=== PATIENT | male | born 1945 | race Caucasian/White ===

== ENCOUNTER 2020-05-17 14:57 | Emergency (ER) | payer OTHER ==
[~2020-05-17] VITALS: Ht 182.9 cm; Wt 93.9 kg
[~2020-05-17 14:57] MED LIST: ALLO100; CIPRO500 MG PO; Flagyl500 MG PO; METO50; OMEP20ER; ROSU10TA; WARF1; WARF2
== END 2020-05-17 17:29 | disposition home or self-care (01) ==
LOC: ER 14:57
DX: T63.441A Toxic effect of venom of bees, accidental (unintentional), initial encounter (principal); Z88.8 Allergy status to other drugs, medicaments and biological substances; Z79.899 Other long term (current) drug therapy; Z79.01 Long term (current) use of anticoagulants; Z79.2 Long term (current) use of antibiotics; J44.9 Chronic obstructive pulmonary disease, unspecified; M10.9 Gout, unspecified; E78.5 Hyperlipidemia, unspecified; K21.9 Gastro-esophageal reflux disease without esophagitis; I25.2 Old myocardial infarction; I11.0 Hypertensive heart disease with heart failure; I50.9 Heart failure, unspecified; Z87.891 Personal history of nicotine dependence
CPT/HCPCS: 93005; 93010; 96374; 96375; 99284-25; J1200; J1885; J2930; J7030

== ENCOUNTER 2022-07-15 17:30 | Emergency (ER) | payer OTHER ==
[~2022-07-15] VITALS: Ht 185.4 cm; Wt 97.1 kg
== END 2022-07-15 19:03 | disposition home or self-care (01) ==
LOC: ER 17:30
DX: T63.441A Toxic effect of venom of bees, accidental (unintentional), initial encounter (principal); R07.0 Pain in throat; J44.9 Chronic obstructive pulmonary disease, unspecified; E78.5 Hyperlipidemia, unspecified; K21.9 Gastro-esophageal reflux disease without esophagitis; I11.0 Hypertensive heart disease with heart failure; I50.9 Heart failure, unspecified; I25.2 Old myocardial infarction; Z88.8 Allergy status to other drugs, medicaments and biological substances; Z91.030 Bee allergy status; Z95.0 Presence of cardiac pacemaker; Z79.01 Long term (current) use of anticoagulants; Z79.899 Other long term (current) drug therapy; Z87.891 Personal history of nicotine dependence
CPT/HCPCS: 99282; J7512

== ENCOUNTER 2023-10-07 13:11 | Day surgery (SDC) | payer OTHER ==
[2023-10-07] VITALS (9 sets, daily range): BP systolic 115–140; BP diastolic 66–92
[~2023-10-07] VITALS: Ht 185.4 cm; Wt 96.4 kg
[~2023-10-07 13:11] MED LIST changes: +ALLO100 PO; +AMIODARONE HCL200 M1 PO; +ELIQUIS5 M2 PO; +Isosorbide Mono30 MG PO; +LOSA25 PO; -METO50; +METO50 PO
--- NOTE | 2023-10-07 15:31 | NUR ---
PT AWAKE AND TALKING AFTER CARDIOVERSION WITH ANESTHESIA. EKG BEING DONE.
--- NOTE | 2023-10-07 15:53 | NUR ---
PT BACK TO BASELINE, DR MONROY IN TO SEE PT. IV D/C CATHETER INTACT. PT VERBALIZE D/C INSTRUCTIONS. DR MONROY OFFICE WILL CALL PT FOR FOLLOW UP APPOINTMENT.
== END 2023-10-09 22:51 | disposition home or self-care (01) ==
LOC: MHTC 13:11
DX: I25.10 Atherosclerotic heart disease of native coronary artery without angina pectoris (principal); R06.02 Shortness of breath; R53.83 Other fatigue; I47.20 Ventricular tachycardia, unspecified; Z45.02 Encounter for adjustment and management of automatic implantable cardiac defibrillator; Z86.79 Personal history of other diseases of the circulatory system; I48.0 Paroxysmal atrial fibrillation; Z95.2 Presence of prosthetic heart valve; Z95.810 Presence of automatic (implantable) cardiac defibrillator; E78.2 Mixed hyperlipidemia; I50.20 Unspecified systolic (congestive) heart failure; I11.0 Hypertensive heart disease with heart failure; Z88.8 Allergy status to other drugs, medicaments and biological substances
CPT/HCPCS: 92960; J2704; J7030

== ENCOUNTER 2023-12-11 05:37 | Emergency (ER) | payer OTHER ==
[~2023-12-11] VITALS: Ht 182.9 cm; Wt 94.3 kg
[2023-12-11 06:28] LABS: BASOPHILS ABSOLUTE AUTO 0.06 K/mm3 (0.00-0.23); BASOPHILS PERCENT AUTO 1 % (0-2); EOSINOPHILS ABSOLUTE AUTO 0.26 K/mm3 (0.00-0.68); EOSINOPHILS PERCENT AUTO 3 % (0-6); Hematocrit 48.7 % (37.0-53.0); Hemoglobin 15.7 g/dL (13.5-17.5); IMMATURE GRAN ABSOLUTE AUTO 0.03 K/mm3 (0.00-0.10); IMMATURE GRAN PERCENT AUTO 0 % (0-1); LYMPHOCYTES ABSOLUTE AUTO 2.04 K/mm3 (0.84-5.20); LYMPHOCYTES PERCENT AUTO 22 % (21-46); MONOCYTES ABSOLUTE AUTO 0.77 K/mm3 (0.16-1.47); MONOCYTES PERCENT AUTO 8 % (4-13); Mean Corpuscular HGB Conc 32.2 g/dL (31.5-36.5); Mean Corpuscular Volume 90 fL (80-100); Mean Platelet Volume 10.2 fL (9.1-12.4); NEUTROPHILS PERCENT AUTO 66 % (41-73); Platelet Count 182 K/mm3 (150-400); RDW Coefficient Variation 18.2 % (11.7-14.2); Red Blood Cell Count 5.42 M/mm3 (4.30-5.90); White Blood Cell Count 9.16 K/mm3 (4.00-11.30)
[2023-12-11 06:55] LABS: Albumin, Blood 3.2 g/dL (3.4-5.0); Albumin/Globulin Ratio 0.8 (0.8-1.8); Bilirubin, Total 0.6 mg/dL (0.1-1.0); Bun/Creatinine Ratio 20.7 (12.0-20.0); Calcium, Blood 9.1 mg/dL (8.5-10.1); Creatinine, Blood 1.21 mg/dL (0.60-1.20); Globulin, Blood 4.1 g/dL (2.2-4.0); Magnesium, Blood 2.2 mg/dL (1.6-2.4); Potassium, Blood 4.7 mmol/L (3.5-5.5); Total Protein, Blood 7.3 g/dL (6.4-8.2)
[2023-12-11 10:15] VITALS: BP 146/92
== END 2023-12-11 10:28 | disposition home or self-care (01) ==
LOC: ER 05:37
PROVIDERS: Student in an Organized Health Care Education/Training Program
DX: R06.02 Shortness of breath (principal); R00.2 Palpitations; R94.31 Abnormal electrocardiogram [ECG] [EKG]; Z95.810 Presence of automatic (implantable) cardiac defibrillator; I13.0 Hypertensive heart and chronic kidney disease with heart failure and stage 1 through stage 4 chronic kidney disease, or unspecified chronic kidney disease; I50.9 Heart failure, unspecified; N18.9 Chronic kidney disease, unspecified; Z87.891 Personal history of nicotine dependence; J44.9 Chronic obstructive pulmonary disease, unspecified; M10.9 Gout, unspecified; I25.2 Old myocardial infarction; I48.91 Unspecified atrial fibrillation; Z86.79 Personal history of other diseases of the circulatory system; Z79.01 Long term (current) use of anticoagulants; Z79.899 Other long term (current) drug therapy; Z88.8 Allergy status to other drugs, medicaments and biological substances; Z91.030 Bee allergy status
CPT/HCPCS: 71046; 80053; 83690; 83735; 83880; 84484; 85025; 93005; 93010; J3475

== ENCOUNTER 2024-05-02 09:30 | Inpatient (IN) | payer OTHER, MEDICARE ==
[~2024-05-02] VITALS: Ht 188 cm; Wt 85.2 kg
[~2024-05-02 09:30] MED LIST changes: +FISH OIL 1,0001 EA10 PO; +FURO20 PO; +NITRO-DUR1 EAC1 TOP; -OMEP20ER; +OMEP20ER PO; -ROSU10TA; +ROSUVASTATIN CA10 MG PO
[2024-05-02 10:02] LABS: BASOPHILS ABSOLUTE AUTO 0.07 K/mm3 (0.00-0.23); BASOPHILS PERCENT AUTO 1 % (0-2); EOSINOPHILS ABSOLUTE AUTO 0.15 K/mm3 (0.00-0.68); EOSINOPHILS PERCENT AUTO 2 % (0-6); Hematocrit 44.8 % (37.0-53.0); Hemoglobin 14.7 g/dL (13.5-17.5); IMMATURE GRAN ABSOLUTE AUTO 0.02 K/mm3 (0.00-0.10); IMMATURE GRAN PERCENT AUTO 0 % (0-1); LYMPHOCYTES ABSOLUTE AUTO 2.16 K/mm3 (0.84-5.20); LYMPHOCYTES PERCENT AUTO 22 % (21-46); MONOCYTES ABSOLUTE AUTO 1.05 K/mm3 (0.16-1.47); MONOCYTES PERCENT AUTO 11 % (4-13); Mean Corpuscular HGB 28.9 pg (26.0-34.0); Mean Corpuscular HGB Conc 32.8 g/dL (31.5-36.5); Mean Corpuscular Volume 88 fL (80-100); Mean Platelet Volume 10.9 fL (9.1-12.4); NEUTROPHILS ABSOLUTE AUTO 6.28 K/mm3 (1.96-9.15); NEUTROPHILS PERCENT AUTO 65 % (41-73); NRBC ABSOLUTE 0.03 K/mm3 (0.00-0.02); NRBC Auto 0.3 /100 WBC (0.0-0.2); Platelet Count 234 K/mm3 (150-400); RDW Standard Deviation 57.4 fL (35.1-46.3); Red Blood Cell Count 5.09 M/mm3 (4.30-5.90); White Blood Cell Count 9.73 K/mm3 (4.00-11.30)
[2024-05-02 10:21] LABS: Albumin, Blood 3.2 g/dL (3.4-5.0); Albumin/Globulin Ratio 0.8 (0.8-1.8); Bilirubin, Total 1.3 mg/dL (0.1-1.0); Creatinine, Blood 2.32 mg/dL (0.60-1.20); Total Protein, Blood 7.2 g/dL (6.4-8.2)
[2024-05-02 10:52] LABS: Magnesium, Blood 3.2 mg/dL (1.6-2.4)
[2024-05-02] MEDS ORDERED: NS 1,000 ML IV SCH (10:55)
[2024-05-02 11:00] LABS: Thyroid Stimulating Hormone 1.28 uIU/mL (0.360-4.800)
[2024-05-02 12:07] LABS: Influenza A, PCR NEGATIVE (NEGATIVE); Influenza B, PCR NEGATIVE (NEGATIVE); Resp Syncytial Virus, PCR NEGATIVE (NEGATIVE); SARS-Cov-2 (COVID-19) PCR, MMC NEGATIVE (NEGATIVE)
[2024-05-02] MEDS ORDERED: Furosemide 10 MG/ML 4ML Vial IV ONE (12:20)
[2024-05-02 12:21] LABS: Source, Urine Clean Catch
[2024-05-02] MEDS ORDERED: Midodrine 5 MG Tab PO ONE (12:25)
[2024-05-02 12:30] LABS: Appearance, Urine Clear (Clear); Bilirubin, Urine Neg (Neg); Blood, Urine Neg (Neg); Color, Urine Amber (P-Yellow); Glucose Qualitative, Urine Neg (Neg); Ketones, Urine Neg (Neg); Leukocyte Esterase, Urine 1+ (Neg); Nitrite, Urine Neg (Neg); Protein, Urine 2+ (Neg); Specific Gravity, Urine 1.015 (1.003-1.022); Urobilinogen, Urine NORM (Normal)
[2024-05-02 12:48] LABS: Amorphous Light (0-Heavy); Bacteria Few /hpf; Red Blood Cells, Urine 0-2 /hpf (0-2); Squamous Epithelial Cells Rare /hpf (Few)
[2024-05-02] MEDS ORDERED: Acetaminophen 325 MG TABLET PO PRN (12:50)
[2024-05-02] MEDS ORDERED: Ondansetron HCl 2 MG / ML 2ML Vial IV PRN (12:50)
[2024-05-02] MEDS ORDERED: Midodrine 5 MG Tab PO SCH (13:00)
[2024-05-02 13:10] LABS: Base Excess Venous 1.8 mmol/L; Bicarbonate Venous 24.1 mmol/L (24.0-30.0); PCO2 Venous 51.4 mmHg (38-42); pH Blood Venous 7.34 (7.34-7.37)
[2024-05-02 15:32] VITALS: BP 97/78
[2024-05-02] MEDS ORDERED: FOLI1 PO (15:54)
--- NOTE | 2024-05-02 17:18 | NUR ---
ARRIVAL TO PCU: PT ARRIVED TO PCU-1 VIA GURNEY AT 1535. REPORT FROM RAQUEL RN, THIS RN ASSUMED CARE. ABLE TO STAND & TRANSFER TO BED W/ 1P ASSIST. PT A/OX4, ABLE TO COMMUNICATE NEEDS W/ STAFF. HR 70'S, PACED ON TELE. SBP 90'S, MAP >65. PT DENIES DIZZINESS W/ STANDING. SPO2 >88% ON RA, RESPIRATIONS EVEN & UNLABORED, AFEBRILE. GI/ WNL. SKIN GROSSLY INTACT; PALLOR NOTED T/O, CYANOSIS TO FINGERTIPS. PT ORIENTED TO ROOM/UNIT/CALL LIGHT. FIRE SAFETY/IGNITION RISK ASSESSED; PT IS NON-SMOKER AND DENIES HAVING ANY IGNITION SOURCES PRESENT ON ADMISSION. FAMILY MEMBER AT BEDSIDE. NO OTHER NEEDS AT THIS TIME. SITTING UP IN BED EATING DINNER. CALL LIGHT IN REACH.
[2024-05-02] MEDS ORDERED: Furosemide 10 MG/ML 4ML Vial IV SCH (18:00)
[2024-05-02 18:25] VITALS: BP 102/81
[2024-05-02 19:46] VITALS: BP 95/68
[2024-05-02 23:13] VITALS: BP 107/77
[2024-05-02] MEDS ORDERED: Melatonin 5 MG Tablet PO PRN (23:30)
[2024-05-03] VITALS (9 sets, daily range): BP systolic 94–117; BP diastolic 62–86
[2024-05-03 05:06] LABS: Creatinine, Blood 2.12 mg/dL (0.60-1.20); Potassium, Blood 4.9 mmol/L (3.5-5.5)
[2024-05-03] MEDS ORDERED: Omeprazole 20 MG CapCR PO SCH (06:00)
--- NOTE | 2024-05-03 06:31 | NUR ---
SHIFT SUMMARY PATIENT ALERT AND ORIENETED x4 T/O THE NIGHT. LABORED BREATHING AND TACHYPNEA NOTED AT BEGINNING OF SHIFT, TOLERATING 2L O2 VIA NC WELL. DYSPNEA ON EXERTION TO RESTROOM, AMBULATES WITH WALKER AND 1P ASSIST. URINAL AT BEDSIDE, RN ADVICED PATIENT TO USE URINAL TO AVOID OVEREXERTION. PATIENT'S SKIN T/O IS PALE TO CYANOTIC, ESPECIALLY CYANOTIC IN THE FINGER TIPS WITH CLUBBING. SKIN WARM. PATIENT APPEARS TO BE RESTING COMFORTABLY WITH EVEN CHEST RISE AND FALL. SLEEP MEDS ORDERED OVERNIGHT FOR PT'S INSOMNIA.
[2024-05-03] MEDS ORDERED: Allopurinol 100 MG Tab PO SCH (09:00)
[2024-05-03] MEDS ORDERED: Furosemide 10 MG/ML 4ML Vial IV SCH (09:00)
[2024-05-03] MEDS ORDERED: Folic Acid 1 MG TAB PO SCH (09:00)
[2024-05-03] MEDS ORDERED: Metoprolol Tartrate 50 MG Tab PO SCH (09:00)
[2024-05-03] MEDS ORDERED: Amiodarone HCl 200 MG Tab PO SCH (09:00)
[2024-05-03] MEDS ORDERED: Nitroglycerin Patch 0.4 MG / HR TOP SCH (09:00)
[2024-05-03] MEDS ORDERED: Docosahexanoic Acid/EPA 1,000 MG CAP PO SCH (09:00)
[2024-05-03] MEDS ORDERED: Metoprolol Succinate 50 MG TABCR PO SCH (09:00)
[2024-05-03] MEDS ORDERED: Apixaban 5 MG Tab PO SCH (09:00)
--- NOTE | 2024-05-03 12:48 | NUR ---
REASSESSMENT PT HAS CONTINUED TO HAVE A NORMAL BP, EVEN WITH RECEIVING HIS HEART MEDICATIONS THIS MORNING. SPOKE WITH DR. COLE AFTER HE CHANGED PT'S METOPOROLOL SINCE AM DOSE HAD BEEN GIVEN AND HE GAVE ORDERS TO KEEP EVENING DOSE THE SAME, THEN SWITCH TO LONG ACTING IN THE MORNING. PT HAS HAD LITTLE OUTPUT SINCE RECEIVING LASIX THIS AM. HIS LUNGS ARE CLEAR, BUT VERY DIM. HE GETS WINDED WITH MINIMAL ACTIVITY AND PT STATES THAT HE FEELS VERY WEAK. HE GOT UP TO THE BATHROOM TWICE AND WAS ABLE TO HAVE A BM. MINIMAL APPETITE. SO VISITED AND WAS UPDATED BY NURSING STAFF.
--- NOTE | 2024-05-03 17:10 | NUR ---
SHIFT SUMMARY PT HAS MAINTAINED MAP ABOVE 65 THROUGHOUT THE SHIFT. HIS URINE OUTPUT HAS BEEN LOW THOUGH SO DR. COLE NOTIFIED AND HE SWITCHED PT TO BUMEX. OXYGEN HAD TO BE INCREASED TO 3L/NC THIS AFTERNOON WHILE PT WAS RESTING BECAUSE SPO2 WAS 88%. PT HAS CONTINUED TO BE DYSPNEIC WITH ACTIVITY AND COMPLAIN OF AN OVERALL FEELING OF WEAKNESS. HE HAD SOME PAIN IN HIS ARMS THIS AFTERNOON THAT RESOLVED WITH TYLENOL. POOR APPETITE, ONLY EATING ABOUT 25% OF MEALS.
[2024-05-03] MEDS ORDERED: Metolazone 5 MG Tab PO SCH (18:00)
[2024-05-03] MEDS ORDERED: Bumetanide 0.25 MG/ML 4ML ViaL IV SCH (18:00)
--- NOTE | 2024-05-03 20:38 | NUR ---
CARE ASSUMPTION ASSUMED CARE OF PATIENT AT 1900. PATIENT ALERT AND ORIENTED x4, VISITING WITH FAMILY AT BEDSIDE. MAINTAINING SPO2 >90% ON 2L O2 VIA NC. DENIES PAIN/DISCOMFORT. PM METOPROLOL 100MG HELD BY RN DUE TO PATIENT'S SBP < 100. PATIENT BP TENDS TO RUN LOW DURING THE NIGHT. CURRENT HR 78, PACED.
[2024-05-03] MEDS ORDERED: Rosuvastatin Calcium 10 MG Tab PO SCH (21:00)
[2024-05-03] MEDS ORDERED: Metoprolol Tartrate 50 MG Tab PO ONE (21:00)
[2024-05-04 03:11] VITALS: BP 100/75
[2024-05-04 04:47] LABS: Bun/Creatinine Ratio 24.2 (12.0-20.0); Creatinine, Blood 2.27 mg/dL (0.60-1.20)
[2024-05-04 07:44] VITALS: BP 106/77
[2024-05-04] MEDS ORDERED: Metoprolol Succinate 25 MG TABCR PO SCH (09:00)
[2024-05-04 11:26] VITALS: BP 92/67
[2024-05-04 15:29] VITALS: BP 96/65
--- NOTE | 2024-05-04 18:07 | NUR ---
SHIFT SUMMARY PT REMAINS A&OX4, CALLS APPROPRAITELY, AND WILL MAKE HIS NEEDS KNOWN. HE IS A 1P SBA W/ FWW WHEN TRANSFERING. HE WORKED WITH PT AND THEY RECCOMENED HOME HEALTH. THE PT HAS BEEN V PACED ON TELE, BP SOFT BUT STABLE WITH MIDODRINE. HE HAS BEEN TITRATITED TO 3LNC TO MAINTAIN SP02 >90% AND TO HELP WITH SOB. THE PT HAD AN UNEVENTFUL DAY THIS SHIFT. FAMILY UPDATED ON CARE WHEN AT BEDSIDE. SEE NOTES FOR ANY UPDATES.
[2024-05-04 19:40] VITALS: BP 105/84
[2024-05-05] VITALS (10 sets, daily range): BP systolic 88–111; BP diastolic 56–84
[2024-05-05 04:22] LABS: Bun/Creatinine Ratio 23.7 (12.0-20.0); Calcium, Blood 9.3 mg/dL (8.5-10.1); Creatinine, Blood 2.45 mg/dL (0.60-1.20); Potassium, Blood 3.8 mmol/L (3.5-5.5)
--- NOTE | 2024-05-05 05:14 | NUR ---
SHIFT SUMMARY ASSUMED CARE OF PT AT 1900. PT IS A/OX4. HEART SOUNDS REGULAR. PACED. LUNG SOUNDS HAVE CRACKELS AT THE BASES. PT TITRATED TO 2L NC. DENIES SOB. PT USED URINAL INDEPENDENTLY T/O THE NOC. NO ACTUE EVENTS.
[2024-05-05] MEDS ORDERED: Bumetanide 0.25 MG/ML 10ML Vial IV ONE (08:45)
[2024-05-05] MEDS ORDERED: Midodrine 5 MG Tab PO SCH (09:00)
--- NOTE | 2024-05-05 16:48 | NUR ---
SHIFT SUMMARY PT IS A&oX4, CALLS APPROPRAITELY, AND MAKES HIS NEEDS KNOWN. HE IS A 1P SBA FOR TRANSFER, AND HAS BEEN UP IN THE CHAIR MOST OF THE SHIFT. HE USES THE URINAL IND, AND IS ON A FLUID RESTRICTION OF 1L. ON TELE THE PT HAS BEEN VPACED 80'S, AND BP HAS BEEN SOFT. DR. COLE INCREASED FREQUENCY OF MIDODRINE TO 10MG QID. DR. CHEN WAS CONSULTED AND IS MANAGING DIURETICS. CAME IN TO EVALUATE THE PT THIS MORNING. NO ACUTE EVENTS THIS SHIFT. SEE NOTES FOR UPDATES.
[2024-05-06] VITALS (11 sets, daily range): BP systolic 87–115; BP diastolic 59–78
[2024-05-06 04:24] LABS: Hematocrit 42.5 % (37.0-53.0); Hemoglobin 14.5 g/dL (13.5-17.5)
[2024-05-06 04:55] LABS: Albumin, Blood 3.1 g/dL (3.4-5.0); Anion Gap 10 mmol/L (3-11); Blood Urea Nitrogen 63 mg/dL (8-24); Bun/Creatinine Ratio 26.7 (12.0-20.0); CO2, Blood 30 mmol/L (21-32); Calcium, Blood 9.3 mg/dL (8.5-10.1); Chloride, Blood 96 mmol/L (98-108); Creatinine, Blood 2.36 mg/dL (0.60-1.20); Glomerular Filtration Rate 27 (60-); Glucose, Blood 91 mg/dL (70-99); Magnesium, Blood 2.3 mg/dL (1.6-2.4); Phosphorus, Blood 4.8 mg/dL (2.5-4.9); Potassium, Blood 3.4 mmol/L (3.5-5.5); Sodium, Blood 133 mmol/L (136-145)
--- NOTE | 2024-05-06 05:05 | NUR ---
SHIFT SUMMARY ASSUMED CARE OF PT AT 1900. PT IS A/OX4. HEART SOUNDS REGULAR. LUNG SOUNDS HAVE CRACKLES AT THE BASES. PT REMAINED ON 2L NC T/O THE NOC DUE TO DYSPNEA. PT USED URINAL AT BEDSIDE IND. PT COMPLAINED OF NOT BEING ABLE TO SLEEP THIS NOC.
[2024-05-06] MEDS ORDERED: Potassium Chloride 20 MEQ TabCR PO ONE (05:55)
[2024-05-06] MEDS ORDERED: Bumetanide 1 MG Tab PO SCH (09:00)
[2024-05-06] MEDS ORDERED: Midodrine 5 MG Tab PO SCH (09:00)
[2024-05-06] MEDS ORDERED: Empagliflozin 10 MG TAB PO SCH (09:00)
--- NOTE | 2024-05-06 09:59 | NUR ---
CALLED DR. COLE THIS MORNING ABOUT PT'S HYPOTENSION. HE RESTARTED MIDODRINE 1OMG TID, WANTS ME TO HOLD THEE METOPROLOL AT THIS TIME, AND HE CONSULTED CARDIOLOGY. DR. MONROY CAME AND SAW THE PT. HE STATED IF THE PT'S BP MAP <60 THEN THE PT NEEDS TO GO TO ICU. DR. MONROY IS ORDERING A STRESS TEST.
--- NOTE | 2024-05-06 11:54 | NUR ---
OXYGEN TITRATION TRIAL THE PT HAS BEEN ON 2L NC W/ SP02>93%. I TITRAITED HIM TO 1LNC FOR ABOUT THIRTY MINUTES, UNTIL HE REPORTED FEELING SLIGHTLY SHORT OF BREATH AND HE STATED HE NOTICED THE DIFFERENCE. HIS SP02 WAS 88-90%. THE PT WAS PUT BACK ON 2LNC AND SOB HAS RESOLVED; SP02 >93%.
[2024-05-06] MEDS ORDERED: Regadenoson 0.4 MG/5 ML SYRINGE ONE (13:31)
--- NOTE | 2024-05-06 17:25 | NUR ---
SHIFT SUMMARY PT IS A&OX4, CALLS APPROPRIATELY, AND MAKES THEIR NEEDS KNOWN. HE IS A 1P SBA D/T LINE MANAGMENT AND DECONDITIONING. HE HAS BEEN PACED ON TELE AND HAD A STRESS TEST TODAY. I LET DR. MONROY KNOW ABOUT TO TEST RESULTS AND DR. MONROY STATED NO ANGIOGRAM AT THIS TIME. BP HAS BEEN SOFT BUT STABLE, MIDODRINE 1OMG TID FOR SBP <100 ON THE PT'S JAN. HE HAS BEEN ON 2L NC W/ SP02 >90%. I TRIED TITRATING HIM DOWN EARLIER TODAY, SEE PREVIOUS NOTE. NO ACUTE EVENTS THIS SHIFT. SEE NOTES FOR ANY UPDATES.
--- NOTE | 2024-05-06 17:35 | NUR ---
DR. MONROY SAW THE PT AND TALKED TO HIM ABOUT HIS STRESS TEST. THE PT IS GOING TO F/U OUTPT WITH CARDIOLOGY AT [facility] OR [facility] FOR MORE TESTING.
[2024-05-07 00:06] VITALS: BP 95/63
[2024-05-07 03:29] LABS: Hematocrit 41.2 % (37.0-53.0); Hemoglobin 13.7 g/dL (13.5-17.5)
[2024-05-07 03:32] VITALS: BP 103/74
[2024-05-07 03:50] LABS: Anion Gap 12 mmol/L (3-11); Blood Urea Nitrogen 63 mg/dL (8-24); Bun/Creatinine Ratio 27.3 (12.0-20.0); CO2, Blood 31 mmol/L (21-32); Calcium, Blood 9.1 mg/dL (8.5-10.1); Chloride, Blood 95 mmol/L (98-108); Creatinine, Blood 2.31 mg/dL (0.60-1.20); Glomerular Filtration Rate 28 (60-); Glucose, Blood 111 mg/dL (70-99); Magnesium, Blood 2.2 mg/dL (1.6-2.4); Phosphorus, Blood 4.2 mg/dL (2.5-4.9); Potassium, Blood 3.1 mmol/L (3.5-5.5); Sodium, Blood 135 mmol/L (136-145)
--- NOTE | 2024-05-07 05:46 | NUR ---
SHIFT SUMMARY A/Ox4 AND COOPERATIVE WITH CARE. ANSWERS QUESTIONS APPROPRIATELY AND ABLE TO MAKE HIS NEEDS KNOWN. NO ACUTE EVENTS OVERNIGHT. CARDIAC, REMAINS IN PACED RHYTHM RANGING 80'S WITH NO REPORTS OF CP, PRESSURE OR DIZZINESS. SBP HAS BEEN SOFT, BUT STABLE RANGING 90-100'S WITH MAP ALWAYS >65. RESPIRATORY, MAINTAINS SPO2 >90% ON 2L NC. ATTEMPTED TO TITRATE PT DOWN TO 1L, BUT PT WAS NOT ABLE TO TOLERATE 1L WHEN ATTEMPTING TO SLEEP. GI/, ABLE TO STAND AT BEDSIDE AND VOID INTO URINAL WITHOUT ASSISTANCE. PAIN MANAGED WITH PRN TYLENOL. NO NEW ORDERS AT THIS TIME, WILL REPORT TO ONCOMING RN. ERENDIRA ANGELES OF THIS NOTE.
[2024-05-07] MEDS ORDERED: Potassium Chloride 20 MEQ TabCR PO ONE (06:25)
[2024-05-07 08:24] VITALS: BP 90/64
--- NOTE | 2024-05-07 08:30 | NUR ---
INITIAL ASSESSMENT: Patient is awake sitting up in bed after eating breakfast. He is alert and oriented x4. LS DIM in the bases, biox is mid to low 90s on 2l via NC, pt is eager to have oxygen at home, Dr. Almeida discussed the process of home O2 eval and insurance quialification. HRR, he is 100% paced with a rate in the 80s. BT+, pt states he is not as regular as he was before but states he had a BM yesterday. He states he is having a little bit of discomfort with urination, he said it cooper slightly. PPP. Dr. Almeida is at the bedside discussing a possible discharge plan after home O2 eval. AM meds given at this time. Call light in reach.
[2024-05-07] MEDS ORDERED: Potassium Chloride 10 Meq Tablet SA PO SCH ×2 (09:00)
[2024-05-07] MEDS ORDERED: BUME2 PO (11:39)
[2024-05-07 11:40] VITALS: BP 106/78
[2024-05-07] MEDS ORDERED: METO25ER PO (11:40)
[2024-05-07] MEDS ORDERED: JARDIANCE10 MG PO (11:40)
[2024-05-07] MEDS ORDERED: POTCHL20ER PO (11:45)
[2024-05-07] MEDS ORDERED: MIDODRINE HCL10 M2 PO (11:45)
[2024-05-07] MEDS ORDERED: ROSUVASTATIN CA10 MG PO (12:17)
[2024-05-07 13:08] VITALS: BP 106/73
--- NOTE | 2024-05-07 14:24 | NUR ---
DISCHARGE: Patient and verbalize understanding of discharge instructions. [facility] delivered portable oxygen. [facility]. Patient discharged to home with and son via WC.
== END 2024-05-07 14:26 | disposition home or self-care (01) | DRG 291 ==
LOC: ER 09:30 → PCU 12:48
PROVIDERS: Internal Medicine Nephrology; Student in an Organized Health Care Education/Training Program; ADMIT Internal Medicine
DX: I13.0 Hypertensive heart and chronic kidney disease with heart failure and stage 1 through stage 4 chronic kidney disease, or unspecified chronic kidney disease (principal); I50.43 Acute on chronic combined systolic (congestive) and diastolic (congestive) heart failure; J96.01 Acute respiratory failure with hypoxia; N17.9 Acute kidney failure, unspecified; E87.1 Hypo-osmolality and hyponatremia; E87.4 Mixed disorder of acid-base balance; N18.30 Chronic kidney disease, stage 3 unspecified; Z66 Do not resuscitate; I95.9 Hypotension, unspecified; I25.5 Ischemic cardiomyopathy; I25.119 Atherosclerotic heart disease of native coronary artery with unspecified angina pectoris; E87.6 Hypokalemia; I48.0 Paroxysmal atrial fibrillation; J44.9 Chronic obstructive pulmonary disease, unspecified; M10.9 Gout, unspecified; E78.5 Hyperlipidemia, unspecified; D64.9 Anemia, unspecified; K21.9 Gastro-esophageal reflux disease without esophagitis; Z87.891 Personal history of nicotine dependence; Z88.8 Allergy status to other drugs, medicaments and biological substances; Z95.5 Presence of coronary angioplasty implant and graft; Z95.810 Presence of automatic (implantable) cardiac defibrillator; Z79.01 Long term (current) use of anticoagulants; Z79.899 Other long term (current) drug therapy; Z91.038 Other insect allergy status; Z98.890 Other specified postprocedural states
CPT/HCPCS: 0241U; 36415; 71045; 76770; 78452; 80048; 80053; 80069; 81001; 82570; 82803; 83690; 83735; 83880; 84300; 84443; 84484; 85014; 85018; 85025; 87086; 93005; 93010; 93017; 93308; 93321; 94762; 96361; 96374; 97110; 97116; 97162; 97530; 99285-25; A9270; A9500; J1940; J2405; J2785; J7030

== ENCOUNTER → 2024-05-14 | Outpatient (CLI) | payer OTHER, MEDICARE ==
[~2024-05-14] MED LIST changes: +BUME2 PO; +FOLI1 PO; +JARDIANCE10 MG PO; +METO25ER PO; +MIDODRINE HCL10 M2 PO; +POTCHL20ER PO
[2024-05-14 13:54] LABS: Protein, Urine Quantitative 36.9 mg/dL (0.0-11.9)
== END | disposition home or self-care (01) ==
LOC: LAB SHORT 02:00 → LAB FUT 05-10 10:40 → EDSTATUS 05-10 10:40
PROVIDERS: Internal Medicine Nephrology
DX: N18.30 Chronic kidney disease, stage 3 unspecified (principal); D63.1 Anemia in chronic kidney disease; N25.81 Secondary hyperparathyroidism of renal origin; E55.9 Vitamin D deficiency, unspecified; E78.00 Pure hypercholesterolemia, unspecified; R76.9 Abnormal immunological finding in serum, unspecified; R94.5 Abnormal results of liver function studies; R94.6 Abnormal results of thyroid function studies; D51.8 Other vitamin B12 deficiency anemias; D52.8 Other folate deficiency anemias; D50.9 Iron deficiency anemia, unspecified
CPT/HCPCS: 81050; 82043; 82570; 84156

== ENCOUNTER 2025-06-27 10:37 | Observation (INO) | payer OTHER ==
[2025-06-27] VITALS (19 sets, daily range): BP systolic 102–140; BP diastolic 56–71
[~2025-06-27] VITALS: Ht 185.4 cm; Wt 81.0 kg
[2025-06-27] MEDS ORDERED: EpiNEPhrine 1 MG/1 ML 1ML Vial IM ONE (10:45)
[2025-06-27] MEDS ORDERED: NS 1,000 ML IV SCH ×2 (10:45→14:00)
[2025-06-27] MEDS ORDERED: EPINEPHrine HCL 4 MG in NS 250 ML IV SCH (10:50)
[2025-06-27 10:52] LABS: pH Blood Venous 7.31 (7.34-7.37)
[2025-06-27] MEDS ORDERED: FentaNYL Citrate 50 MCG/ML 2 ML Injection IV ONE ×2 (11:00→11:45)
[2025-06-27 11:18] LABS: Hematocrit 49.1 % (37.0-53.0); Hemoglobin 15.9 g/dL (13.5-17.5); Mean Corpuscular HGB Conc 32.4 g/dL (31.5-36.5); Mean Corpuscular Volume 97 fL (80-100); NRBC ABSOLUTE 0.00 K/mm3 (0.00-0.02); NRBC Auto 0.0 /100 WBC (0.0-0.2); Platelet Count 213 K/mm3 (150-400); RDW Coefficient Variation 16.1 % (11.7-14.2); RDW Standard Deviation 58.4 fL (35.1-46.3)
[2025-06-27 11:28] LABS: Alanine Aminotransfer (ALT/SGP 40.0 U/L (12-78); Albumin, Blood 3.2 g/dL (3.4-5.0); Albumin/Globulin Ratio 0.8 (0.8-1.8); Anion Gap 13.0 mmol/L (3-11); Aspartate Aminotrans (AST/SGOT 41.0 U/L (12-37); Bilirubin, Total 0.4 mg/dL (0.1-1.0); Blood Urea Nitrogen 35.0 mg/dL (8-24); CO2, Blood 20.0 mmol/L (21-32); Calcium, Blood 9.2 mg/dL (8.5-10.1); Chloride, Blood 110.0 mmol/L (98-108); Creatinine, Blood 1.7 mg/dL (0.60-1.20); Globulin, Blood 4.1 g/dL (2.2-4.0); Glucose, Blood 157.0 mg/dL (70-99); Magnesium, Blood 2.5 mg/dL (1.6-2.4); Potassium, Blood 3.7 mmol/L (3.5-5.5); Sodium, Blood 139.0 mmol/L (136-145); Total Protein, Blood 7.3 g/dL (6.4-8.2)
[2025-06-27] MEDS ORDERED: Lidocaine 4% 1 Patch TOP ONE (12:10)
[2025-06-27 12:16] LABS: BASOPHILS ABSOLUTE MAN 0.00 K/mm3 (0.00-0.23); BASOPHILS PERCENT MAN 0 % (0-2); EOSINOPHILS ABSOLUTE MAN 0.11 K/mm3 (0.00-0.68); EOSINOPHILS PERCENT MAN 1 % (0-6); LYMPHOCYTES ABSOLUTE MAN 5.99 K/mm3 (0.84-5.20); LYMPHOCYTES PERCENT MAN 50 % (21-46); MONOCYTES ABSOLUTE MAN 0.23 K/mm3 (0.16-1.47); MONOCYTES PERCENT MAN 2 % (4-13); NEUTROPHILS ABSOLUTE MAN 5.63 K/mm3 (1.96-9.15); SEG NEUTROPHILS PERCENT MAN 47 % (41-73)
[2025-06-27] MEDS ORDERED: Ondansetron HCl 2 MG / ML 2ML Vial IV PRN (13:55)
[2025-06-27] MEDS ORDERED: DiphenhydrAMINE HCl 50 MG/ML 1ML Vial IV PRN ×2 (14:20→14:35)
--- NOTE | 2025-06-27 16:00 | NUR ---
Assumed care of pt on arrival to ICU 10 from emergency department. Pt A&O x 4. Answers questions, follows commands, verbalizes needs. Pleasant and cooperative with care. SpO2 90% or greater RA. Atrial paced per monitor, rate 60s, BP stable. Family at bedside, including spouse, educated on plan of care. Pt and family deny questions at this time. Call light in reach. Bed in lowest position.
[2025-06-27] MEDS ORDERED: THERA-D2000 UNIT PO (16:37)
[2025-06-27] MEDS ORDERED: FentaNYL Citrate 50 MCG/ML 2 ML Injection IV PRN (17:35)
--- NOTE | 2025-06-27 18:14 | NUR ---
SUMMARY No acute changes to initial assessment. Pt has been having pain despite PO oxycodone, call placed to Dr Ochoa to update. Despite having "constant sharp" pain, pt is eager to help with repositioning and use incentive spirometer as directed. Pt demonstrated correct use of IS and verbalized indication for use. SpO2 remains 90% or greater with RA. BP stable. HR 80s per monitor.
--- NOTE | 2025-06-27 20:37 | NUR ---
ASSUMPTION OF CARE CARE OF PT ASSUMED FOLLOWING BEDSIDE SHIFT REPORT FROM DAY RN. PT IN BED, RESTING AND IN NO APPARENT DISTRESS. ALERT AND ORIENTED TO ALL. PAIN IN CHEST S/P COMPRESSIONS. WILL TREAT WITH ORDERED PRN PAIN MEDS AND ADVOCATE FOR ME IF NEEDED. AFEBRILE. VSS STABLE. AV PACED RHYTHM AND STABLE BP. 93% ON RA. NO CORANARY TYPE CHEST PAIN/PRESSURE OR SOB. NO AB PAIN, N/V. BOWEL SOUNDS PRESENT THROUGHOUT. PT STEADY ON FEET, USES URINAL AT SIDE OF BED. NS INFUSING AT 100ML/HR. WILL REVIEW AND CONTINUE PLAN OF CARE.
[2025-06-28] VITALS (16 sets, daily range): BP systolic 83–113; BP diastolic 50–70
[2025-06-28 03:32] LABS: BASOPHILS ABSOLUTE AUTO 0.02 K/mm3 (0.00-0.23); BASOPHILS PERCENT AUTO 0 % (0-2); EOSINOPHILS ABSOLUTE AUTO 0.00 K/mm3 (0.00-0.68); EOSINOPHILS PERCENT AUTO 0 % (0-6); Hematocrit 40.6 % (37.0-53.0); Hemoglobin 13.2 g/dL (13.5-17.5); IMMATURE GRAN ABSOLUTE AUTO 0.17 K/mm3 (0.00-0.10); IMMATURE GRAN PERCENT AUTO 1 % (0-1); LYMPHOCYTES ABSOLUTE AUTO 1.42 K/mm3 (0.84-5.20); LYMPHOCYTES PERCENT AUTO 7 % (21-46); MONOCYTES ABSOLUTE AUTO 0.27 K/mm3 (0.16-1.47); MONOCYTES PERCENT AUTO 1 % (4-13); Mean Corpuscular HGB Conc 32.5 g/dL (31.5-36.5); Mean Corpuscular Volume 94 fL (80-100); NEUTROPHILS ABSOLUTE AUTO 19.99 K/mm3 (1.96-9.15); NEUTROPHILS PERCENT AUTO 91 % (41-73); NRBC ABSOLUTE 0.00 K/mm3 (0.00-0.02); NRBC Auto 0.0 /100 WBC (0.0-0.2); Platelet Count 171 K/mm3 (150-400); RDW Coefficient Variation 16.1 % (11.7-14.2); RDW Standard Deviation 55.7 fL (35.1-46.3)
[2025-06-28 03:53] LABS: Alanine Aminotransfer (ALT/SGP 36.0 U/L (12-78); Albumin, Blood 2.9 g/dL (3.4-5.0); Albumin/Globulin Ratio 0.8 (0.8-1.8); Anion Gap 8.0 mmol/L (3-11); Aspartate Aminotrans (AST/SGOT 32.0 U/L (12-37); Bilirubin, Total 0.4 mg/dL (0.1-1.0); Blood Urea Nitrogen 34.0 mg/dL (8-24); CO2, Blood 25.0 mmol/L (21-32); Calcium, Blood 8.5 mg/dL (8.5-10.1); Chloride, Blood 109.0 mmol/L (98-108); Creatinine, Blood 1.45 mg/dL (0.60-1.20); Globulin, Blood 3.8 g/dL (2.2-4.0); Glucose, Blood 132.0 mg/dL (70-99); Potassium, Blood 4.4 mmol/L (3.5-5.5); Sodium, Blood 138.0 mmol/L (136-145); Total Protein, Blood 6.7 g/dL (6.4-8.2)
--- NOTE | 2025-06-28 05:07 | NUR ---
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
--- NOTE | 2025-06-28 05:26 | NUR ---
SHIFT SUMMARY PT LYING IN BED IN NO APPARENT DISTRESS, ALERT AND ORIENTED TO ALL. PT MOVES WELL IN BED AND IS HELPED TO SIDE OF BED TO URINATE. MOVEMENT CAUSES PAIN IN PT CHEST, FROM COMPRESSIONS (CXR WAS NEGATIVE TO OBVIOUS FRACTURES). PAIN MODERATELY WELL CONTROLLED WITH PRN OXYCODONE AND FENTANYL, THOUGH PT SEEMS RELUCTANT TO FULLY COMPLAIN ABOUT PAIN STATUS. 97.0 F MOST OF NIGHT. PT STAYED IN AV PACED RHYTHM AT 60 BPM ALL NIGHT AND BP REMAINED STABLE. BP STARTED TO SLIGHTLY DECREASE TOWARDS END OF SHIFT, WHEN FLUIDS WERE NO LONGER INFUSING, THOUGH THIS COULD HAVE BEEN DUE TO SLEEPING WELL. PT WAS STARTED ON 2L AROUND MIDNIGHT FOR MILD DESAT INTO MID 80'S WHILE ASLEEP. NO CORONARY TYPE CHEST PAIN/PRESSURE OR SOB ALL SHIFT. PT ALSO DENIED AB PAIN, N/V. PT HAD ONE SMALL BM. URINE OUTPUT WAS 510ML FOR 12 HOUR SHIFT. NO INCIDENCE OF ALLERGIC TYPE SYMPTOMS REOCCURING, LIKE HIVES, SWELLING, SOB. PT DID C/O ITCHING, MOST LIKELY RELATED TO OPIATES, HOWEVER HE DID NOT WANT THIS RN TO ADVOCATE FOR A PHARMACOLOGICAL SOLUTION TO THIS ISSUE. PT HAD TROUBLE SLEEPING ALL NIGHT, DESPITE TAKING HIS USUAL DOSE OF MELATONIN. BEDSIDE SHIFT REPORT GIVEN TO ONCOMING DAY RN AND PT LEFT IN ROOM WITH CALL LIGHT HANDY.
--- NOTE | 2025-06-28 08:33 | NUR ---
ASSUME CARE; PT IN BED UPON BEDSIDE SHIFT REPORT, PT ABLE TO PARTICIPATE DURING REPORT. PT COMFORTABLE IN BED, HAS SOME CHEST PAIN POST CPR WORSE WITH MOVEMENT PT HAS BEEN GETTING PAIN MEDICINE PERIODICALLY. PT REMAINS ALERT AND ORIENTED X3-4 AT BASELINE, ABLE TO MAKE NEEDS KNOWN. PT SIMNOA TO EAT BREKAFAST WITH NO ISSUES TOOK MEDS WITH ENSURE THIS MORNING. PT REPORTS BEING ABLE TO STAND A COUPLE TIMES LAST NIGHT AT BEDSIDE WITH NO ISSUES. USES URINAL FOR VOIDING. NO OTHER ISSUES AT THIS TIME, VITALS HRR AV PACED, SBP 110'S WITH MAP >65, SATS ABOVE 90% ON RA, AFEBRILE. WILL CONTINUE TO MONITOR
[2025-06-28] MEDS ORDERED: Folic Acid 1 MG TAB PO SCH (09:00)
[2025-06-28] MEDS ORDERED: OXAYDO5 M2 PO (09:53)
[2025-06-28] MEDS ORDERED: EPIPEN0.3 MG/0.3 IM (09:54)
--- NOTE | 2025-06-28 13:42 | NUR ---
PT DISCHARGED TO HOME TODAY, ALL NEW MEDICATIONS AND DISCHARGE INSTRUCTIONS DISCLOSED WITH BOTH AND THE PT, BOTH VERBALIZED UNDERSTANDING. HARD SCRIPT PROVIDED TO THE FOR OXYCODONE. PRESCRIPTION SENT TO [facility]. PT ASSISTED TO GET DRESSED. PT ABLE TO AMBULATE AND TRANSFER TO WHEELCHAIR WITHOUT ANY ISSUES ALL BELONGINGS SENT WITH THE PT. ACCOMPANIED VIA WHEELCHAIR UPON DISCHARGE
== END 2025-06-28 11:46 | disposition home or self-care (01) ==
LOC: ER 10:37 → ICUE 10:38
PROVIDERS: Student in an Organized Health Care Education/Training Program; ADMIT Internal Medicine
DX: T63.441A Toxic effect of venom of bees, accidental (unintentional), initial encounter (principal); T78.2XXA Anaphylactic shock, unspecified, initial encounter; I46.8 Cardiac arrest due to other underlying condition; X58.XXXA Exposure to other specified factors, initial encounter; J96.01 Acute respiratory failure with hypoxia; J44.9 Chronic obstructive pulmonary disease, unspecified; I25.10 Atherosclerotic heart disease of native coronary artery without angina pectoris; I13.0 Hypertensive heart and chronic kidney disease with heart failure and stage 1 through stage 4 chronic kidney disease, or unspecified chronic kidney disease; I50.42 Chronic combined systolic (congestive) and diastolic (congestive) heart failure; N18.30 Chronic kidney disease, stage 3 unspecified; I48.19 Other persistent atrial fibrillation; M10.9 Gout, unspecified; K21.9 Gastro-esophageal reflux disease without esophagitis; Z91.030 Bee allergy status; Z88.8 Allergy status to other drugs, medicaments and biological substances; Z79.01 Long term (current) use of anticoagulants; Z79.899 Other long term (current) drug therapy; Z95.810 Presence of automatic (implantable) cardiac defibrillator
CPT/HCPCS: 71045; 80053; 82803; 83735; 83880; 84484; 85025; 93005; 93010; 94640; 94664; 96361; 96372-59; 96374; 96375; 96376; 99285-25; A9270; G0378; J0165; J2919; J3010; J7030; J7050